=== PATIENT | male | born 1990 | race Caucasian/White ===

== ENCOUNTER 2017-07-08 11:59 | Observation (INO) | payer OTHER ==
[~2017-07-08] VITALS: Ht 182.9 cm; Wt 106.6 kg
--- NOTE | ~2017-07-08 | H ---
[address] [address] HISTORY AND PHYSICAL Name: ELISE BETH Room: [address] Kevon Millard#: [id number] Admission: 07/08/17 Attend Phys: Francisco Lopez MD Discharge: 07/09/17 Date of : [birth year] Report #: [id number] THIS REPORT FOR: //name// For History and Physical please refer to the consultation note in the patient's medical record. By: [facility] Hospital[facility] Records Staff BERNADETTE /DEAN
--- NOTE | ~2017-07-08 | H ---
[address] [address] HISTORY AND PHYSICAL Name: ELISE BETH Room: [address] Kevon Millard#: [id number] Admission: 07/08/17 Attend Phys: Francisco Lopez MD Discharge: 07/09/17 Date of : [birth year] Report #: [id number] THIS REPORT FOR: //name// For History and Physical please refer to the electronic consultation note in the patient's medical record. By: 1314Medical Records Staff BERNADETTE /DEAN
[2017-07-08 12:00] VITALS: BP 142/87
[2017-07-08] MEDS ORDERED: NORTRIPTYLINE H50 MG PO (12:06)
[2017-07-08 13:48] VITALS: BP 142/87
[2017-07-08 20:00] VITALS: BP 138/59
[2017-07-09 00:01] VITALS: BP 121/60
[2017-07-09 04:19] VITALS: BP 12/47
--- NOTE | 2017-07-09 12:31 | OP ---
[address] [address] OPERATIVE REPORT Name: ELISE BETH Room: [address] Freeman#: [id number] Admission: 07/08/17 Attend Phys: Francisco Lopez MD Discharge: Date of : [birth year] Report #: [id number] THIS REPORT FOR: //name// CC: Leif Lopez DATE OF SERVICE: 07/08/2017 PREOPERATIVE DIAGNOSIS: Right testicular torsion. POSTOPERATIVE DIAGNOSIS: Right testicular torsion. PROCEDURE: Scrotal exploration, right testicular detorsion, bilateral intrascrotal orchiopexy. SURGEON: Francisco Lopez MD ANESTHESIA: General. ESTIMATED BLOOD LOSS: Less than 10 mL. DRAINS: None. SPECIMENS: None. COMPLICATIONS: None. INDICATIONS: This is a 26-year-old male who presented with right testicular torsion. See the consultation note for details. I recommended that he undergo scrotal exploration with bilateral orchiopexy and possible right orchiectomy. Procedure and its risks and benefits were explained in detail as documented preoperatively. The patient voices clear understanding and wants to proceed. DESCRIPTION OF PROCEDURE: The patient was pretreated with IV Ancef. After induction of general anesthesia, he was positioned, prepped and draped supine. Exam under anesthesia is unchanged and consistent with testicular torsion. A median raphe incision was made. Blunt and sharp dissection were used to enter the scrotal compartment on the right side. Exam reveals that the testis and surrounding structures are dusky and indurated. The tunica vaginalis was opened over the testicle sharply and a small amount of mildly bloody hydrocele fluid was drained. The tunica albuginea was examined and again appears dusky and indurated. Torsion was noted just superior to the testicle and this was manually reduced resulting in immediate release of the tension on the surrounding tissues. The testicle and surrounding structures were irrigated periodically with warm saline and wrapped in warm saline gauze while attention was turned to contralateral orchiopexy. Blunt and [place] [address] OPERATIVE REPORT Name: ELISE BETH Room: [address] M.R.#: [id number] Admission: 07/08/17 Attend Phys: Francisco Lopez MD Discharge: Date of : 89 Report #: [id number] enter the left scrotal compartment. The testicle and surrounding structures are visibly and palpably normal. The tunica vaginalis was incised medially to allow access to the tunica albuginea. The testis was fixed in a 3-point fashion using 3-0 Prolene sutures in an interrupted fashion from the medial aspect of the testicle to the septum. The wound was irrigated periodically with sterile saline. After left-sided orchiopexy, the right testis was reexamined. The swelling and induration were much improved and the testicle is now normal in size. It remains mildly purple in color compared to the left, but significantly improved from prior to the torsion. A sterile Doppler probe was used to interrogate the spermatic cord and good arterial flow was noted progressing into the testicle. A 3 mm incision was made on the tunica albuginea medially and bleeding was noted. There was no extrusion of tubules or necrotic appearance. Three point fixation was performed on the right side with interrupted 3-0 Prolene sutures fixing the medial aspect of the tunica albuginea to the septum. Again, the wound was irrigated with warm saline periodically. Examination after bilateral orchiopexy reveals good position of both testicles. Hemostasis was excellent. The dartos layer was reapproximated with running 2-0 chromic suture. The wound was irrigated again and is hemostatic. The skin was reapproximated with a 0 Prolene suture in a running horizontal mattress fashion. This was done after using 6 mL of plain one-half Marcaine for local anesthesia at the incision level. Wound was examined again and was hemostatic. A Xeroform gauze was applied and covered with fluff gauze dressing. Compressive undergarment was applied over that. The patient tolerated procedure well and was taken to the recovery room in stable condition. Needle, sponge and instrument counts were reported to me as correct at the end of the procedure. <ELECTRONICALLY SIGNED> By: Francisco Lopez MD 07/09/17 [id number] Lopez MD /nt
[2017-07-09 12:49] VITALS: BP 12/47
[2017-07-09] MEDS ORDERED: NORCO 5-325 TA1 EACH PO (12:54)
[2017-07-09 14:33] VITALS: BP 12/47
== END 2017-07-09 14:38 | disposition home or self-care (01) ==
LOC: M.ERS 11:59 → M.SUR 11:59 → M.ERS 13:48 → M.ORTHSURG 16:53
PROVIDERS: ADMIT Urology
DX: N44.00 Torsion of testis, unspecified (principal); Z98.890 Other specified postprocedural states